=== PATIENT | male | born 1995 | race African-American/Black ===

== ENCOUNTER 2021-11-21 08:48 | Day surgery (SDC) | payer OTHER ==
[~2021-11-21] VITALS: Ht 170.2 cm; Wt 87.2 kg
[2021-11-21 09:42] VITALS: BP 141/69; PULSE 58; TEMP 97.6
[2021-11-21] MEDS ORDERED: NORCO 325 MG-51 TAB PO (13:16)
[2021-11-21 14:15] VITALS: BP 130/95; PULSE 78; TEMP 97.3
--- NOTE | 2021-11-21 14:15 | NUR ---
PT RECEIVED FROM PACU PER CART. RECEIVED REPORT FROM [facility]. VS OBTAINED. VSS. PT DENIES ANY PAIN AT THIS TIME. PT UP TO RESTROOM, VOIDED WITHOUT DIFFICULTY. PT AMBULATED TO RESTROOM AND BACK WITHOUT ANY DIFFICULTY. REORIENTED PT TO ROOM. VERBALIZED UNDERSTANDING. WILL CONTINUE TO MONITOR.
[2021-11-21 14:30] VITALS: BP 131/79; PULSE 78
--- NOTE | 2021-11-21 14:30 | NUR ---
PT TOLERATING WATER, COFFEE, AND MUFFIN WITHOUT DIFFICULTY. PT DENIES ANY NEEDS AT THIS TIME. WILL CONTINUE TO MONITOR.
[2021-11-21 14:45] VITALS: BP 133/73; PULSE 80
--- NOTE | 2021-11-21 14:45 | NUR ---
PT TOLERATING PO WITHOUT DIFFICULTY. PT STATES HE IS READY FOR DC. VSS. DENIES ANY OTHER NEEDS AT THIS TIME.
--- NOTE | 2021-11-21 15:10 | NUR ---
DISCHARGE EDUCATION COMPLETED WITH PT AND [facility]. VERBALIZED UNDERSTANDING OF HOME AND FOLLOW UP CARE. ALL QUESTIONS ANSWERED. DISCHARGE PAPERWORK GIVEN TO PT.
--- NOTE | 2021-11-21 15:17 | NUR ---
PT DISCHARGE HOME PER WC WITH [facility] IN PERSONAL VEHICLE.
== END 2021-11-21 15:38 | disposition home or self-care (01) ==
LOC: SDCO 08:48
DX: K40.30 Unilateral inguinal hernia, with obstruction, without gangrene, not specified as recurrent (principal); F17.290 Nicotine dependence, other tobacco product, uncomplicated; Z83.3 Family history of diabetes mellitus
CPT/HCPCS: C1781; J0330; J0690; J1100; J1885; J1940; J2405; J2704; J3010; J7120